=== PATIENT | female | born 1955 | race Caucasian/White ===

== ENCOUNTER 2024-09-06 21:54 | Emergency (ER) | payer MEDICARE, OTHER, SELFPAY ==
[2024-09-06 21:59] VITALS: BP 142/90
[2024-09-06 22:12] LABS: Hematocrit 35.8 % (37.0-47.0); Hemoglobin 12.4 g/dL (12.0-16.0); Mean Corp Hgb Conc. 34.6 g/dL (33.0-37.0); Mean Corpuscular Volume 92.0 fL (81.0-99.0); Nucleated Red Blood Cells % 0 %; Platelet Count 221 10^3/uL (130-400); Red Cell Dist. Width 12.0 % (11.5-14.5)
[2024-09-06 22:27] LABS: Blood Urea Nitrogen 24 mg/dl (7-17); Calcium 9.6 mg/dl (8.4-10.2); Carbon Dioxide 25 mmol/L (22-30); Chloride 104 mmol/L (98-107); Glucose 99 mg/dl (70-99); Potassium 4.4 mmol/L (3.5-5.1); Sodium 135 mmol/L (135-145); eGFR > 60.00
[2024-09-06 22:29] LABS: C-Reactive Protein < 5.00 mg/L (0.0-10.00)
[2024-09-06 23:50] VITALS: BP 150/92
[2024-09-06 23:51] VITALS: BMI 23.4
[2024-09-06 23:52] VITALS: BP 150/92
--- NOTE | 2024-09-07 00:05 | ED.GENMED ---
History of Present Illness
<Librado Zarate MD, Resident - Last Filed: 09/07/24 00:54>
General
Chief Complaint: Skin Problem
Source: patient
Exam Limitations: none
Time Seen by Provider: 09/06/24 23:50
History of Present Illness
History of Present Illness:
This is a 69-year-old female with history of hypertension on lisinopril presenting in the emergency department with complaints of left ankle redness and swelling. She reports that she was bit by an insect while working in the garden 2 days ago.
She experienced progressive redness and swelling of the left outer ankle. She tried soaking it in Epsom salt and used Neosporin ointment over it, did not notice any benefit which prompted her to visit the emergency department. She denies any
fevers or chills, denies any restriction of range of movement of the joint, denies any pain in other joints, denies any rash, denies any recent sickness or sick contacts. Denies any urinary or GI symptoms. Denies any discharge from the insect bite
site.
Past History
<Librado Zarate MD, Resident - Last Filed: 09/07/24 00:54>
Past History
ED Past Medical History: HTN
ED Past Surgical History: None
Social History
Tobacco: Non-smoker
Alcohol: None
Drug: None
Personal:
Living: with family
Family History
Family History: Other (Noncontributory)
Review of Systems
<Librado Zarate MD, Resident - Last Filed: 09/07/24 00:54>
Review of Systems
Allergies reviewed?: Yes
Constitutional: Denies fever or chills
EENT: Denies sore throat
Respiratory: Denies cough
Cardiac: Denies chest pain
ABD/GI: Denies abdominal pain, nausea or diarrhea
: Denies dysuria or frequency
Musculoskeletal: Denies joint pain
Skin: Denies itching
Neurological: Denies dizzy
Endocrine: Denies polyuria
Hematologic/Lymphatic: Denies bleeding
Phy Exam
<Librado Zarate MD, Resident - Last Filed: 09/07/24 00:54>
General Physical Exam
General Presentation: well appearing and no apparent distress
General age: appears stated age
General Skin: warm
General Habitus: normal
General Mental: alert
General Hydration: appears well hydrated
Cardiovascular Exam
Cardiovascular Exam: regular rate/rhythm and no murmur
Pulmonary Exam
Pulmonary Exam: lungs clear, no crackles and no cough
Gastrointestinal Exam
Gastrointestinal Exam: non tender, soft and non distended
Skin Exam
Skin Exam: other (1 cm erythema, warmth with mild swelling about the lateral malleolus of left ankle)
Course
<Librado Zarate MD, Resident - Last Filed: 09/07/24 00:54>
Orders/Labs/Results
Orders:
Orders
09/06/24 22:05
Complete Blood Count/With Diff Urgent
Sed Rate [Erythrocyte Sed Rate] Urgent
09/06/24 22:06
Basic Metabolic Panel Urgent
C-Reactive Protein Urgent
09/07/24 00:28
Doxycycline [Vibramycin] 100 mg PO NOW STA
Tetanus/Diphth/Acelpertussis [Adacel] 0.5 ml IM .ONCE ONE
09/07/24 00:47
Wound Dressing- Treatment ONCE
Location of Wound: left lateral ankle
Treatment of Wound: bacitracin, bandaid
Abnormal Lab Results
09/06/24 09/06/24
22:05 22:06
RBC 3.89 L 10^6/uL
(4.20-5.40)
Hct 35.8 L %
(37.0-47.0)
MCH 31.9 H pg
(27.0-31.0)
Absolute Monos (auto) 0.8 H 10^3/uL
(0.1-0.6)
Monocytes % 12.5 H %
(1.7-9.3)
BUN 24 H mg/dl
(7-17)
09/06/24 22:05
09/06/24 22:06
Vital Signs
Initial and Last Documented VS:
Initial Vital Signs
Temp Pulse Resp BP Pulse Ox
98.4 F 79 16 142/90 99
09/06/24 21:59 09/06/24 21:59 09/06/24 21:59 09/06/24 21:59 09/06/24 21:59
Last Documented Vital Signs
Temp Pulse Resp BP Pulse Ox
98.4 F 85 18 150/92 99
09/06/24 21:59 09/06/24 23:52 09/06/24 23:52 09/06/24 23:52 09/07/24 00:05
<Amita Lyn DO - Last Filed: 09/07/24 00:55>
Orders/Labs/Results
Orders:
Orders
09/06/24 22:05
Complete Blood Count/With Diff Urgent
Sed Rate [Erythrocyte Sed Rate] Urgent
09/06/24 22:06
Basic Metabolic Panel Urgent
C-Reactive Protein Urgent
09/07/24 00:28
Doxycycline [Vibramycin] 100 mg PO NOW STA
Tetanus/Diphth/Acelpertussis [Adacel] 0.5 ml IM .ONCE ONE
09/07/24 00:47
Wound Dressing- Treatment ONCE
Location of Wound: left lateral ankle
Treatment of Wound: bacitracin, bandaid
Abnormal Lab Results
09/06/24 09/06/24
22:05 22:06
RBC 3.89 L 10^6/uL
(4.20-5.40)
Hct 35.8 L %
(37.0-47.0)
MCH 31.9 H pg
(27.0-31.0)
Absolute Monos (auto) 0.8 H 10^3/uL
(0.1-0.6)
Monocytes % 12.5 H %
(1.7-9.3)
BUN 24 H mg/dl
(7-17)
09/06/24 22:05
09/06/24 22:06
Vital Signs
Initial and Last Documented VS:
Initial Vital Signs
Temp Pulse Resp BP Pulse Ox
98.4 F 79 16 142/90 99
09/06/24 21:59 09/06/24 21:59 09/06/24 21:59 09/06/24 21:59 09/06/24 21:59
Last Documented Vital Signs
Temp Pulse Resp BP Pulse Ox
98.4 F 85 18 150/92 99
09/06/24 21:59 09/06/24 23:52 09/06/24 23:52 09/06/24 23:52 09/07/24 00:05
<Librado Zarate MD, Resident - Last Filed: 09/07/24 00:54>
MDM/Problems Addressed
Differential Diagnosis Includes:
Insect bite site cellulitis versus other
MDM/Problems Addressed:
CBC with normal white count and hemoglobin, BMP with low mild elevation of BUN to 24 otherwise normal. ESR and CRP within normal limits
Unsure of the last tetanus booster
Will do tetanus ordered in the ER
1 dose of doxycycline 100 mg in the ER will send a prescription to complete a total course of 7 days. Shared decision was made with the patient for discharge home. Return precaution reviewed. Patient voices understanding and agree with the plan
<Librado Zarate MD, Resident - Last Filed: 09/07/24 00:54>
*Pulse Oximetry
SaO2: 99
Oxygen Mode of Delivery: Room air
Patient hypoxic: no
*Critical Care Note
Total Time (30-74mins, 75-104mins- exclusive of procedures): Not Applicable
ED Attending Note
<Librado Zarate MD, Resident - Last Filed: 09/07/24 00:54>
-
Portions of this chart may have been created with voice recognition software.� Occasional wrong word or��sound alike� substitutions may have occurred due to the inherent limitations of voice recognition software.
<Amita Lyn DO - Last Filed: 09/07/24 00:55>
ED Attending Note
Patient seen and examined by attending physician: Yes
I performed a history and physical exam of patient and discussed management with resident, I reviewed resident's note and agree with documented findings and plan of care.: Yes
ED Attending Note:
69-year-old female with history of hypertension presents with 2-day history of erythematous painful rash left lateral ankle. She admits that she has been working in her garden and believes she may have been bitten by a bug. She denies itch, denies
fever nor chills. She has been putting bacitracin ointment on the red area. Redness slowly spreading today.
She is unsure as to her last tetanus believes this was greater than 10 years ago.
No history of diabetes nor immune compromise.
69-year-old woman appears her stated age, bright and alert, pleasant, appears in no acute distress.
Left lateral ankle has a 1.5 central area of erythema with several small vesicles. There is a surrounding area of mild erythema as well as mild soft tissue swelling. There is no lymphangitis. No drainage. Mild local tenderness to palpation.
Concern for cellulitis, there is no central clearing, nothing to suggest ECM but must also consider tick bite wound. No evidence of abscess formation.
No evidence of puncture wound nor necrosis.
No indication for x-ray.
Vital signs are normal, afebrile and patient has not reported a fever recently.
Labs are unremarkable, reassuring with normal white blood cell count of 6.7. Normal chemistries and negative CRP.
Will treat for local cellulitis with a course of doxycycline that will cover potential MRSA, potential Lyme's disease.
Recommend continuing topical antibiotic ointment.
Will update Tdap.
Recommend local moist heat.
Prompt follow-up with PCP for recheck.
Return precautions discussed.
Discharge Plan
Departure
Patient Disposition: Home (Routine Discharge)
Date of Disposition: 09/07/24
Time of Disposition: 00:36
Patient with high blood pressure during this ER visit?: Yes
Condition: Good
Discharge Problem:
Insect bite
Instructions: Cellulitis (skin infection) in adults - ED discharge instructions, Insect bites and stings - ED discharge instructions, BLOOD PRESSURE
Prescriptions:
New
doxycycline hyclate 100 mg capsule
100 mg PO BID 7 Days Qty: 14 0RF
No Action
lisinopril 10 MG tablet
10 mg PO DAILY
ibuprofen 800 MG tablet
800 mg PO Q6HPRN PRN (Reason: pain) Qty: 14 0RF
clindamycin HCl 300 MG capsule
300 mg PO QID Qty: 40 0RF
Referrals:
Emmanuel Grayson DO [Family Provider, Internal Medicine] - Follow up in 1 week
Activity Restrictions/Additional Instructions:
You were seen at the [facility] emergency department with concerns of left ankle swelling and redness after insect bite. You had a blood work including complete blood count, complete metabolic panel, ESR, CRP. All within normal limits.
You received tetanus booster in the ER. He also received 1 dose of doxycycline 100 mg. A prescription of doxycycline 100 mg capsule was sent to your pharmacy please take it for next 7 days. If you develop any new symptoms, worsening of current
symptoms or any worrisome symptoms including fevers or please return to the emergency department. Please avoid sun exposure while you are on the antibiotic. Please follow-up with your family doctor within 1 week.
Interventions
Interventions:
*Risk Screen - Suicide Last Done: 09/06/24 21:59
*General Assessment Last Done: 09/06/24 21:59
*Neglect/Abuse Screening Last Done: 09/06/24 21:59
*ED- Fall Risk Assessment Last Done: 09/06/24 23:52
*ED COVID-19 Vaccine History Last Done: 09/06/24 23:52
ED-Skin Assessment Last Done: 09/07/24 00:06
Discharge Date and Time
Print Language: [id number]
[2024-09-07] MEDS: ADACEL 0.5 ML IM (01:03)
[2024-09-07] MEDS: VIBRAMYCIN 100 MG PO (01:03)
[2024-09-07 01:12] VITALS: BP 148/85
== END 2024-09-07 01:15 | disposition home or self-care (01) ==
LOC: EMR 21:54
PROVIDERS: Emergency Medicine; EMERGENCY PHYSICIAN Emergency Medicine; FAMILY PHYSICIAN Internal Medicine
DX: S90.562A Insect bite (nonvenomous), left ankle, initial encounter (principal); W57.XXXA Bitten or stung by nonvenomous insect and other nonvenomous arthropods, initial encounter; I10 Essential (primary) hypertension; Z23 Encounter for immunization
CPT/HCPCS: 99283; 90471; 80048; 85025; 85652; 86140; 90715